=== PATIENT | female | born 1960 | race Caucasian/White ===

== ENCOUNTER 2018-01-12 09:20 | Emergency (ER) | payer MEDICAID ==
[~2018-01-12] VITALS: Ht 160 cm; Wt 88.0 kg
[2018-01-12 09:23] VITALS: BP 145/67; Ht 160 cm; Wt 88.0 kg
== END 2018-01-12 10:03 | disposition home or self-care (01) ==
LOC: ED 09:20
DX: L08.9 Local infection of the skin and subcutaneous tissue, unspecified (principal)